=== PATIENT | female | born 1990 | race Caucasian/White ===

== ENCOUNTER 2018-03-29 00:23 | Inpatient (IN) | payer SELFPAY ==
[~2018-03-29] VITALS: Ht 154.9 cm; Wt 59.4 kg
--- NOTE | 2018-03-29 00:40 | NUR ---
RT CALLED PER MD ORDER.
--- NOTE | 2018-03-29 00:40 | NUR ---
TO ER BED 12 C/O SOB X 1 DAY. AA/OX 4. SKIN PINK, WARM, DRY. PT PLACED ON 4LPM VIA NC DUE TO O2 SAT AT 89% ROOM AIR. CURRENTLY 100% O2 SAT. NOTIFIED. -N/V/D. AMBULATED TO HOSPITAL BED WITH STABLE GAIT. NAD. VSS. STABLE CONDITION. WILL CONTINUE TO MONITOR.
[2018-03-29] MEDS ORDERED: Magnesium 1GM/D5W 100ML PREMIX 200 ML IV ONE (00:41)
[2018-03-29] MEDS ORDERED: methylPREDNISolone SOD SUCC 125 MG/2ML VIAL ONE (00:51)
[2018-03-29] MEDS ORDERED: Magnesium 1GM/D5W 100ML PREMIX 100 ML IV ONE ×2 (00:51→03:04)
[2018-03-29 00:54] LABS: BASOPHILS % (AUTO) 0.2 % (0.0-2.0); EOSINOPHILS % (AUTO) 3.6 % (0.0-6.0); HEMATOCRIT 41 % (33-45); HEMOGLOBIN 13.4 g/dL (11.5-14.8); LYMPHOCYTES # (AUTO) 1.4 /CMM (0.8-4.8); LYMPHOCYTES % (AUTO) 10.1 % (20.0-44.0); MEAN CORPUSCULAR HGB CONC 33 g/dl (31.0-36.0); MEAN CORPUSCULAR VOLUME 88 fL (82-100); MONOCYTES # (AUTO) 0.6 /CMM (0.1-1.30); MONOCYTES % (AUTO) 4.6 % (2.0-12.0); NEUTROPHILS # (AUTO) 11.2 /CMM (1.8-8.9); NEUTROPHILS % (AUTO) 81.5 % (43.0-81.0); PLATELET COUNT (AUTO) 334 /CMM (150-450); RDW COEFFICIENT OF VARIATION 13.6 (11.5-15.0); RED BLOOD CELL COUNT(AUTO) 4.64 MIL/uL (4.0-5.2); WHITE BLOOD COUNT (AUTO) 13.7 K/uL (4.3-11.0)
[2018-03-29] MEDS ORDERED: IPRATROPIUM NEB FS 0.5 MG/2.5 ML AMPUL.NEB NEB ONE (01:00)
[2018-03-29] MEDS ORDERED: methylPREDNISolone SOD SUCC 125 MG/2ML VIAL IV ONE (01:00)
[2018-03-29] MEDS ORDERED: ALBUTEROL FS 2.5 MG/3 ML VIAL.NEB NEB ONE (01:00)
[2018-03-29 01:03] LABS: CALCIUM, SERUM 8.1 mg/dL (8.5-10.1); CREATININE 0.7 mg/dL (0.6-1.3); POTASSIUM 4.2 mmol/L (3.5-5.1)
[2018-03-29] MEDS ORDERED: IPRATROPIUM NEB FS 0.5 MG/2.5 ML AMPUL.NEB ONE (01:15)
[2018-03-29] MEDS ORDERED: ALBUTEROL FS 2.5 MG/3 ML VIAL.NEB ONE (01:15)
--- NOTE | 2018-03-29 01:24 | NUR ---
Patient is resting comfortably in bed with eyes closed. Easily aroused. VSS. STABLE CONDITION.
--- NOTE | 2018-03-29 01:39 | NUR ---
XRAY AT BEDSIDE
[2018-03-29] MEDS ORDERED: IV NS 0.9% 1,000 ML BAG IV ONE ×2 (02:00)
[2018-03-29] MEDS ORDERED: AZITHROMYCIN 500 MG in IV D5W 250 ML IV ONE (02:00)
[2018-03-29] MEDS ORDERED: CEFTRIAXONE 1GM BAG (ER ONLY) 50 ML IV ONE (02:00)
[2018-03-29] MEDS ORDERED: CEFTRIAXONE 1 G VIAL ONE (02:03)
[2018-03-29] MEDS ORDERED: AZITHROMYCIN 500 MG VIAL ONE (02:14)
--- NOTE | 2018-03-29 02:34 | NUR ---
PT ASSIGNED TO 325-2
--- NOTE | 2018-03-29 02:35 | NUR ---
CALLED [facility] FOR PANEL ADMISSION
--- NOTE | 2018-03-29 02:57 | NUR ---
REPORT GIVEN TO MAYA STEINBERG FOR MS BED 325-2
[2018-03-29] MEDS ORDERED: ZOLPIDEM TARTRATE 5 MG TABLET PO PRN (03:00)
[2018-03-29] MEDS ORDERED: Z GUARD REMEDY 2 OZ OINT TP PRN (03:00)
[2018-03-29] MEDS ORDERED: MAGNESIUM HYDROXIDE 30 ML UDC PO PRN (03:00)
[2018-03-29] MEDS ORDERED: MAG HYDROX/AL HYDROX/SIMETH 30 ML UDC PO PRN (03:00)
[2018-03-29] MEDS ORDERED: IPRATROPIUM NEB FS 0.5 MG/2.5 ML AMPUL.NEB NEB PRN (03:00)
[2018-03-29] MEDS ORDERED: ACETAMINOPHEN 325 MG TABLET PO PRN (03:00)
[2018-03-29] MEDS ORDERED: ALBUTEROL FS 2.5 MG/0.5 ML VIAL.NEB NEB PRN (03:00)
[2018-03-29] MEDS ORDERED: HYDROCODONE/APAP 5/325MG 1 EACH TABLET PO PRN (03:00)
[2018-03-29] MEDS ORDERED: ONDANSETRON HCL/PF 4 MG/2 ML VIAL IVP PRN (03:00)
--- NOTE | 2018-03-29 03:36 | NUR ---
PT TRANSPORTED TO M/S UNIT STABLE CONDITION. PATRICIA. HARVEY.
--- NOTE | 2018-03-29 03:45 | NUR ---
RN NOTES PT IS ASLEEP, PT MAKES MUMBLE SOUNDS WHEN NAME IS CALLED BUT DOES NOT OPEN HER EYES. SHE CAME VIA GURNEY, WALKED TO HER BED BUT FELL ASLEEP RIGHT AWAY, SHE NEEDS A LOT OF NUDGING FOR HER TO ANSWER QUESTIONS. PT IS IN ROOM AIR, NO SIGNS OF DISTRESS, NO LABORED BREATHING, NO REPORTS OF SOB. SHE DENIES ANY PAIN. PICTURE TAKEN FOR A SMALL SCAB ON THE RIGHT FOOT AND SKIN TEAR ON THE STOMACH. IV ACCESS ON THE RIGHT AC 18G PATENT AND INTACT, ZITHROMAX WAS RUNNING, 2 BAGS OF NS IS RUNNING. WILL CONTINUE AND ASSESS PATIENT
[2018-03-29 04:16] VITALS: BP 118/67
[2018-03-29 04:34] VITALS: BP 118/67
--- NOTE | 2018-03-29 04:42 | NUR ---
PT KEEPS REFUSING EKG. MAYA STEINBERG IS AWARE.
[2018-03-29] MEDS: methylPREDNISolone SOD SUCC 40 MG/ML VIAL IV SCH ×3 (05:49→18:43)
[2018-03-29] MEDS ORDERED: IPRATROPIUM/ALBUTEROL INHALER IH SCH (06:00)
--- NOTE | 2018-03-29 06:44 | NUR ---
RN CLOSING NOTES PT IS ASLEEP IN BED, MUMBLES AT THE MENTION OF HER NAME. BOYFRIEND IS AT BEDSIDE. PT IS IN ROOM AIR, TOLERATING WELL, NO SIGNS OF UNEVEN LABORED BREATHING, NO SIGNS OF DISTRESS, DENIES SOB. IV ACCESS ON THE RIGHT AC 18G IS PATENT AND INTACT. MRSA SWAB DONE, TAKEN FROM BOTH NARES. SAFETY MEASURES IN PLACED, CALL LIGHT WITHIN REACH. WILL ENDORSE CONTINUITY OF CARE TO ONCOMING RN.
--- NOTE | 2018-03-29 07:15 | NUR ---
MS RN INITIAL NOTES Patient in bed, on room air, tolerating well, denies shortness of breath. Appears comfortable, call light within reach.
[2018-03-29] MEDS: IPRATROPIUM NEB FS 0.5 MG/2.5 ML AMPUL.NEB NEB SCH ×4 (07:45→19:51)
[2018-03-29] MEDS: ALBUTEROL FS 2.5 MG/0.5 ML VIAL.NEB NEB SCH ×4 (07:45→19:51)
[2018-03-29 08:00] VITALS: BP 117/72
--- NOTE | 2018-03-29 11:56 | NUR ---
RT NOTE: I WAS MADE AWARE OF RESPIRATORY TREATMENT AT THIS TIME. PATIENT'S RESPIRATIONS ARE EVEN AND UNLABORED. SP02=97% ON ROOM AIR. WILL CONTINUE TREATMENT'S PER ORDER.
--- NOTE | 2018-03-29 13:37 | NUR ---
Social service consult requested by Dr. Lopez for ETOH and substance use. Pt. is a 28 year old female who was admitted to [facility] for PNA. SW met with pt. bedside. Pt. appeared drowsy and kept falling asleep during the assessment. Pt. has her eyes closed the entire time. Pt. is alert and oriented x 3. Pt. said she is homeless for the past two months. Pt. is a poor historian and cannot provide much information. Pt. is a methamphetamine user. SW inquired with pt. if she wants [facility] placement and resources. Pt. declined both. However, SW to meet with pt. again when she is more alert and oriented able to communicate more effectively.
[2018-03-29 16:00] VITALS: BP 121/70
--- NOTE | 2018-03-29 18:50 | NUR ---
MS RN Closing notes Patient is A/O x4, seen by PT today, ambulates more than 50 feet, denies pain. Patient slept most of the day, good appetite. Tolerating room air, no SOB. No cough, afebrile during the shift, no acute events. Continued on IV antibiotic. Will endorse to oncoming RN.
--- NOTE | 2018-03-29 19:30 | NUR ---
RN MS OPENING NOTES RECEIVED PATIENT IN BED ASLEEP. EASILY AROUSABLE. ALERT AND ORIENTED X4. VERBALLY RESPONSIVE. BREATHING EVEN AND UNLABORED. NO SOB NOTED. TOLERATING ROOM AIR. CURRENTLY WITH NO COMPLAINTS OF PAIN OR DISCOMFORT. NO FACIAL GRIMACING. IV ACCESS INTACT AND PATENT. SKIN DRY AND WARM TO TOUCH. AFEBRILE. ALL OTHER NEEDS ATTENDED TO. SAFETY MEASURES IN PLACE. CALL LIGHT WITHIN REACH. WILL CONTINUE TO MONITOR.
[2018-03-29 20:00] VITALS: BP 103/71
[2018-03-30] MEDS: methylPREDNISolone SOD SUCC 40 MG/ML VIAL IV SCH ×2 (00:22→06:15)
[2018-03-30] MEDS: IPRATROPIUM NEB FS 0.5 MG/2.5 ML AMPUL.NEB NEB SCH ×2 (01:19→08:08)
[2018-03-30] MEDS: ALBUTEROL FS 2.5 MG/0.5 ML VIAL.NEB NEB SCH ×2 (01:19→08:09)
[2018-03-30] MEDS ORDERED: CEFTRIAXONE 1 G in IV D5W 50 ML IV SCH (06:00)
[2018-03-30] MEDS ORDERED: AZITHROMYCIN 500 MG in IV D5W 250 ML IV SCH (06:00)
--- NOTE | 2018-03-30 06:52 | NUR ---
RN MS CLOSING NOTES PATIENT IN BED ASLEEP. EASILY AROUSABLE. ALERT AND ORIENTED X4. VERBALLY RESPONSIVE. BREATHING EVEN AND UNLABORED. NO SOB NOTED. TOLERATING ROOM AIR. CURRENTLY WITH NO COMPLAINTS OF PAIN OR DISCOMFORT. NO FACIAL GRIMACING. IV ACCESS INTACT AND PATENT. SKIN DRY AND WARM TO TOUCH. AFEBRILE. ALL OTHER NEEDS ATTENDED TO. SAFETY MEASURES IN PLACE. CALL LIGHT WITHIN REACH. WILL ENDORSE TO ONCOMING NURSE FOR CONTINUITY OF CARE.
[2018-03-30 07:13] LABS: BASOPHILS # (AUTO) 0.1 /CMM (0.0-0.2); BASOPHILS % (AUTO) 0.7 % (0.0-2.0); HEMATOCRIT 41 % (33-45); HEMOGLOBIN 13.4 g/dL (11.5-14.8); LYMPHOCYTES % (AUTO) 5.2 % (20.0-44.0); MEAN CORPUSCULAR HGB CONC 33 g/dl (31.0-36.0); MEAN CORPUSCULAR VOLUME 89 fL (82-100); MONOCYTES # (AUTO) 0.3 /CMM (0.1-1.30); MONOCYTES % (AUTO) 1.7 % (2.0-12.0); NEUTROPHILS # (AUTO) 17.2 /CMM (1.8-8.9); NEUTROPHILS % (AUTO) 92.4 % (43.0-81.0); PLATELET COUNT (AUTO) 294 /CMM (150-450); RDW COEFFICIENT OF VARIATION 14.1 (11.5-15.0); RED BLOOD CELL COUNT(AUTO) 4.63 MIL/uL (4.0-5.2); WHITE BLOOD COUNT (AUTO) 18.6 K/uL (4.3-11.0)
--- NOTE | 2018-03-30 07:15 | NUR ---
MS RN OPENING NOTE \ RECEIVED PATIENT IN BED. ALERT ORIENTED X4. ON ROOM AIR, TOLERATING WELL. IN NO APPARENT DISTRESS OR DISCOMFORT AT THIS TIME. RESPIRATIONS EVEN AND UNLABORED. DENIES PAIN AND SOB. PATIENT IS ABLE TO COMMUNICATE NEEDS. CONTINENT WITH BATHROOM PRIVILEGE. ABLE TO AMBULATE INDEPENDENTLY. PATIENT WITH RIGHT AC 18G IVC SALINE LOCK. PATENT AND INTACT. KEPT CLEAN AND COMFORTABLE. ALL NEEDS ATTENDED. SAFETY MEASURES IN PLACE. BED IN LOW LOCKED POSITION, SIDE RAILS UP X2, CALL LIGHT WITHIN EASY REACH. WILL CONTINUE TO MONITOR.
[2018-03-30 07:33] LABS: THYROID STIMULATING HORMONE 0.18 uIU/mL (0.358-3.74)
[2018-03-30 07:35] LABS: CALCIUM, SERUM 8.5 mg/dL (8.5-10.1); CREATININE 0.6 mg/dL (0.6-1.3); MAGNESIUM 1.8 mg/dL (1.8-2.4); PHOSPHORUS 3.2 mg/dL (2.5-4.9); POTASSIUM 3.8 mmol/L (3.5-5.1)
[2018-03-30 08:00] VITALS: BP 100/64
--- NOTE | 2018-03-30 09:00 | NUR ---
PATIENT LEFT THE UNIT AMA. AWOL. PULLED OUT HER OWN IV CATHETER, REFUSED TO SIGN AMA FORM. REPORTED TO LIQUID FERTILIZER SERVICER. REPORTED TO DR. YOUNG.
== END 2018-03-30 08:45 | disposition left against medical advice (07) | DRG 190 ==
LOC: ER 00:25 → EDBD 00:25 → MED 02:41
DX: J44.0 Chronic obstructive pulmonary disease with (acute) lower respiratory infection (principal); J15.9 Unspecified bacterial pneumonia; J44.1 Chronic obstructive pulmonary disease with (acute) exacerbation; F17.210 Nicotine dependence, cigarettes, uncomplicated; D72.829 Elevated white blood cell count, unspecified
CPT/HCPCS: 36415; 71045-TC; 80048-TC; 80061-TC; 83605-TC; 83735-TC; 83880; 84100-TC; 84443-TC; 84484-TC; 84703-TC; 85025-TC; 87040-TC; 87081-TC; 93307-TC; A4216; A4606; G0378; J0456; J0696; J2405; J2920; J2930; J3475; J7030; J7050; J7060; Z7610